=== PATIENT | female | born 1990 | race African-American/Black ===

== ENCOUNTER 2017-05-11 21:55 | Emergency (ER) | payer MEDICAID ==
[~2017-05-11] VITALS: Ht 157.5 cm; Wt 77.1 kg
[~2017-05-11 21:55] MED LIST: PREN-96 OR
[2017-05-11 22:10] VITALS: BP 138/90
[2017-05-12] MEDS ORDERED: ALBUTEROL SULF 2.5 MG/0.5ML(0.5%) NEB SOLN NEB ONE
[2017-05-12] MEDS ORDERED: IPRATROPIUM BROM 0.5 MG/2.5ML INH SOL NEB ONE
[2017-05-12] MEDS ORDERED: IBUPROFEN 600 MG TAB PO ONE
[2017-05-12] MEDS ORDERED: methylPREDNISolone SOD SUCC 125 MG/2 ML VL IM ONE
[2017-05-12] MEDS ORDERED: Acetam/CODEINE 120mg/12mg per 5mL UD PO ONE
== END 2017-05-12 01:10 | disposition home or self-care (01) ==
LOC: ER 22:00
DX: M94.0 Chondrocostal junction syndrome [Tietze] (principal); J40 Bronchitis, not specified as acute or chronic
CPT/HCPCS: 71020; 81025; 94640; 96372; 99285; J2930